=== PATIENT | female | born 1945 | race Hispanic/Latino ===

== ENCOUNTER 2025-05-23 00:21 | Emergency (ER) | payer OTHER ==
[~2025-05-23] VITALS: Ht 152.4 cm; Wt 89.8 kg
--- NOTE | 2025-05-23 01:03 | ERN ---
General Chief Complaint: CPR/Full Arrest Stated Complaint: CODE BLUE Time Seen by MD: 00:28 Source: EMS History of Present Illness Initial Comments Patient is a an 80-year-old female brought in cardiac arrest from EMS per EMS patient had stopped breathing and was found to be in cardiac arrest an hour prior to arrival. EMS states that they had given her five epis with no success. ROS Dictation Unable to perform due with the patient he has been cardiac arrest Physical Exam Physical Exam Dictation Unable to perform due to being in cardiac arrest Results Laboratory and Microbiology Labs Reviewed?: Yes MDM MDM: Differential diagnosis: Cardiac arrest Rationale: Tests considered and ordered secondary to shared decision making include: Previous outside records reviewed: Old ER visits. Risk of complication and/or morbidity or mortality of patient management: None Medications-Per medication reconciliation CPR was carried out for 20 minutes using five epinephrine ultrasound confirmed no response to medications. At that point it was decided to stop resuscitation attempts due to patient being in cardiac arrest for greater than an hour. Family members agreed with stopping resuscitation attempts. DX & DISP Disposition: Departure Impression: Primary Impression: Cardiac arrest Condition: Referrals: NONE (PCP) PRASHANTH STAHL MD May 23, 2025 01:03
[2025-05-23] MEDS ORDERED: CACL 1GM SYG IVP ONE (12:00)
[2025-05-23] MEDS ORDERED: SODIUM BICARB 8.4% 50ML SYRINGE ONE (12:00)
[2025-05-23] MEDS ORDERED: DEXTROSE 50%-WATER 50 ML DISP.SYRIN IV ONE (12:00)
== END 2025-05-23 02:00 ==
LOC: EDBD 00:21 → EDH 00:21
DX: I46.9 Cardiac arrest, cause unspecified (principal)
CPT/HCPCS: 99285; 92950; 31500; J7070; J0169; J3490 ×2